=== PATIENT | male | born 1995 | race African-American/Black ===

== ENCOUNTER 2017-09-27 16:52 | Emergency (ER) | payer MEDICAID ==
[2017-09-27 18:30] LABS: CANNABINOIDS Positive (NEGATIVE)
[2017-09-27 18:32] LABS: BARBITURATES Negative (NEGATIVE); BENZODIAZEPINES Negative (NEGATIVE); COCAINE Negative (NEGATIVE); OPIATES Negative (NEGATIVE)
[2017-09-27 18:33] LABS: AMPHETAMINE/METHAMPHETAMINE POSITIVE (NEGATIVE)
== END 2017-09-27 19:58 | disposition home or self-care (01) ==
LOC: FTE 16:52
DX: T43.621A Poisoning by amphetamines, accidental (unintentional), initial encounter (principal); F10.129 Alcohol abuse with intoxication, unspecified
CPT/HCPCS: 80307; 99283

== ENCOUNTER 2018-11-16 12:25 | Emergency (ER) | payer SELFPAY, MEDICAID | END 2018-11-16 14:19 | disposition left against medical advice (07) | LOC: E/R 12:25 | DX: Z53.21 Procedure and treatment not carried out due to patient leaving prior to being seen by health care provider (principal) ==